=== PATIENT | male | born 1970 | race Caucasian/White ===

== ENCOUNTER 2016-04-29 10:00 | Outpatient (RCR) | payer MEDICAID | END 2016-05-04 | LOC: M OUTALCOH 10:00 | PROVIDERS: ATTEND Psychiatry & Neurology Psychiatry | DX: F10.10 Alcohol abuse, uncomplicated (principal); F12.20 Cannabis dependence, uncomplicated; F17.200 Nicotine dependence, unspecified, uncomplicated ==

== ENCOUNTER → 2016-05-05 | Outpatient (REF) | payer MEDICAID | LOC: M LABNEURO 17:03 | PROVIDERS: ATTEND Psychiatry & Neurology Neurology | DX: R79.89 Other specified abnormal findings of blood chemistry (principal) ==

== ENCOUNTER 2016-05-27 09:00 | Outpatient (RCR) | payer MEDICAID | END 2016-06-01 | LOC: M OUTALCOH 09:00 | PROVIDERS: ATTEND Psychiatry & Neurology Psychiatry | DX: Z13.9 Encounter for screening, unspecified (principal); F12.20 Cannabis dependence, uncomplicated; F10.10 Alcohol abuse, uncomplicated; F17.200 Nicotine dependence, unspecified, uncomplicated ==

== ENCOUNTER → 2016-06-22 | Outpatient (CLI) | payer OTHER ==
--- NOTE | 2016-06-22 13:51 | REP ---
CERVICAL SPINE, EIGHT VIEWS: HISTORY: Obesity. There is no acute fracture or subluxation. The C5-6 intervertebral disc is decreased in height consistent with disc degeneration. The neural foramina are patent. IMPRESSION: Degenerative change as described above. Signed by Chencho Bazan MD 06/22/2016 02:19 P
--- NOTE | 2016-06-22 13:57 | REP ---
LUMBAR SPINE, SEVEN VIEWS: HISTORY: Obesity. There is no acute fracture. The L5-S1 intervertebral disc is decreased in height consistent with disc degeneration. Osteophytes are present on T12 through L2 and L5. The facet joints are normal in appearance. There are 2 mm of retrolisthesis of L5 on S1. This is unchanged with flexion and extension. IMPRESSION: Degenerative change as described above. Signed by Chencho Bazan MD 06/22/2016 02:19 P
== END ==
LOC: M LAB 12:18
PROVIDERS: ATTEND Neurological Surgery
DX: M47.892 Other spondylosis, cervical region (principal); M47.896 Other spondylosis, lumbar region; E66.9 Obesity, unspecified

== ENCOUNTER 2016-06-24 09:00 | Outpatient (RCR) | payer MEDICAID | END 2016-07-02 | LOC: M OUTALCOH 09:00 | PROVIDERS: ATTEND Psychiatry & Neurology Psychiatry | DX: Z13.9 Encounter for screening, unspecified (principal); F12.20 Cannabis dependence, uncomplicated; F10.10 Alcohol abuse, uncomplicated; F17.200 Nicotine dependence, unspecified, uncomplicated ==

== ENCOUNTER → 2017-01-10 | Outpatient (CLI) | payer MEDICAID | LOC: M OUTALCOH 12:29 | PROVIDERS: ATTEND Psychiatry & Neurology Psychiatry | DX: F12.20 Cannabis dependence, uncomplicated (principal); F10.10 Alcohol abuse, uncomplicated ==

== ENCOUNTER → 2017-10-26 | Outpatient (CLI) | payer OTHER | LOC: M RAD 17:57 | DX: M25.512 Pain in left shoulder (principal) | CPT/HCPCS: 73221 ==

== ENCOUNTER → 2018-01-20 | Outpatient (REF) | payer OTHER ==
[2018-01-20 17:44] LABS: BASO # 0.1 10^3/uL (0.0-0.2); BASO % 1.4 % (0.0-1.0); EOS # 0.2 10^3/uL (0.0-0.50); EOS % 2.4 % (0.0-3.0); HEMATOCRIT 49.9 % (42.0-52.0); HEMOGLOBIN 16.7 g/dl (13.5-17.5); IMMATURE GRANULOCYTE % 0.4 % (0-3.0); LYMPH % 28.6 % (24.0-44.0); MEAN CORPUSCULAR HEMOGLOBIN 31.5 pg (27.0-33.0); MEAN CORPUSCULAR HGB CONC 33.5 g/dl (32.0-36.5); MONO # 0.7 10^3/uL (0.0-0.8); MONO % 9.8 % (0.0-5.0); NEUTROPHILS % 57.4 % (36.0-66.0); PLATELET COUNT, AUTOMATED 236 10^3/uL (150-450); RED BLOOD COUNT 5.31 10^6/uL (4.30-6.10); RED CELL DISTRIBUTION WIDTH 13.5 % (11.5-14.5)
[2018-01-20 18:03] LABS: ALBUMIN 3.9 GM/DL (3.2-5.2); ALBUMIN/GLOBULIN RATIO 1.22 (1.00-1.93); ALKALINE PHOSPHATASE 137 U/L (45-117); ALT/SGPT 27 U/L (12-78); ANION GAP 5 MEQ/L (8-16); AST/SGOT 23 U/L (7-37); BILIRUBIN,TOTAL 0.4 MG/DL (0.2-1.0); BLOOD UREA NITROGEN 9 MG/DL (7-18); CALCIUM LEVEL 9.1 MG/DL (8.5-10.1); CARBON DIOXIDE LEVEL 27 MEQ/L (21-32); CHLORIDE LEVEL 109 MEQ/L (98-107); CHOLESTEROL LEVEL 249 MG/DL (<200); CHOLESTEROL RISK RATIO 6.916 (<5); CREATININE FOR GFR 0.86 MG/DL (0.70-1.30); GLOMERULAR FILTRATION RATE > 60.0 (>60); GLUCOSE, FASTING 97 MG/DL (70-100); HDL CHOLESTEROL 36 MG/DL (>40); LDL CHOLESTEROL 185 MG/DL (<100); NON-HDL-C 213 MG/DL; POTASSIUM SERUM 4.5 MEQ/L (3.5-5.1); SODIUM LEVEL 141 MEQ/L (136-145); TOTAL PROTEIN 7.1 GM/DL (6.4-8.2); TRIGLYCERIDES LEVEL 138 MG/DL (<150)
== END ==
LOC: M LAB REF 16:41
DX: E78.5 Hyperlipidemia, unspecified (principal); I10 Essential (primary) hypertension; R06.02 Shortness of breath
CPT/HCPCS: 84443

== ENCOUNTER → 2018-09-14 | Outpatient (REF) | payer OTHER ==
[~2018-09-14] MED LIST: ANTIBIOTIC; CHAN1PAK13 PO; FLOM0.4C39 PO; GABA800T4 PO; INCR1INH PO; RANI150T PO; SULF1TAB72 PO
[2018-09-14 18:49] LABS: ALBUMIN 3.5 GM/DL (3.2-5.2); ALT/SGPT 20 U/L (12-78); BILIRUBIN,TOTAL 0.3 MG/DL (0.2-1.0); BLOOD UREA NITROGEN 8 MG/DL (7-18); CALCIUM LEVEL 8.4 MG/DL (8.5-10.1); CARBON DIOXIDE LEVEL 31 MEQ/L (21-32); CHLORIDE LEVEL 107 MEQ/L (98-107); CHOLESTEROL LEVEL 209 MG/DL (<200); CHOLESTEROL RISK RATIO 5.805 (<5); CREATININE FOR GFR 0.94 MG/DL (0.70-1.30); GLOMERULAR FILTRATION RATE > 60.0 (>60); GLUCOSE, FASTING 83 MG/DL (70-100); HDL CHOLESTEROL 36 MG/DL (>40); LDL CHOLESTEROL 150 MG/DL (<100); NON-HDL-C 173 MG/DL; POTASSIUM SERUM 4.8 MEQ/L (3.5-5.1); SODIUM LEVEL 141 MEQ/L (136-145); THYROID STIMULATING HORMONE 0.758 uIU/ML (0.358-3.740); TOTAL PROTEIN 6.9 GM/DL (6.4-8.2); TRIGLYCERIDES LEVEL 114 MG/DL (<150)
== END ==
LOC: M LAB REF 17:42
PROVIDERS: ATTEND Family Medicine Addiction Medicine
DX: E78.5 Hyperlipidemia, unspecified (principal)

== ENCOUNTER → 2019-07-20 | Outpatient (REF) | payer OTHER ==
[~2019-07-20] MED LIST changes: -SULF1TAB72 PO; +SULF400T14 PO
[2019-07-20 12:42] LABS: BASO # 0.1 10^3/uL (0.0-0.2); EOS # 0.1 10^3/uL (0.0-0.5); HEMATOCRIT 51.8 % (42.0-52.0); HEMOGLOBIN 16.7 g/dl (13.5-17.5); LYMPH # 1.6 10^3/uL (1.5-5.0); LYMPH % 14.7 % (24.0-44.0); MEAN CORPUSCULAR HEMOGLOBIN 31.1 pg (27.0-33.0); MEAN CORPUSCULAR HGB CONC 32.2 g/dl (32.0-36.5); MEAN CORPUSCULAR VOLUME 96.5 fl (80.0-96.0); MONO % 9.4 % (0.0-5.0); NEUTROPHILS # 7.7 10^3/uL (1.5-8.5); NEUTROPHILS % 73.2 % (36.0-66.0); PLATELET COUNT, AUTOMATED 234 10^3/uL (150-450); RED BLOOD COUNT 5.37 10^6/uL (4.30-6.10); WHITE BLOOD COUNT 10.5 10^3/uL (4.0-10.0)
[2019-07-20 13:14] LABS: ALBUMIN 3.3 GM/DL (3.2-5.2); ALT/SGPT 19 U/L (12-78); BILIRUBIN,TOTAL 0.2 MG/DL (0.2-1.0); BLOOD UREA NITROGEN 12 MG/DL (7-18); CALCIUM LEVEL 9.1 MG/DL (8.5-10.1); CARBON DIOXIDE LEVEL 29 MEQ/L (21-32); CHLORIDE LEVEL 106 MEQ/L (98-107); CHOLESTEROL LEVEL 203 MG/DL (<200); CHOLESTEROL RISK RATIO 4.229 (<5); CREATININE FOR GFR 0.93 MG/DL (0.70-1.30); FREE T4 1.03 NG/DL (0.76-1.46); GLOMERULAR FILTRATION RATE > 60.0 (>60); GLUCOSE, FASTING 94 MG/DL (70-100); HDL CHOLESTEROL 48 MG/DL (>40); LDL CHOLESTEROL 137 MG/DL (<100); NON-HDL-C 155 MG/DL; POTASSIUM SERUM 4.5 MEQ/L (3.5-5.1); RUBELLA IgG QUALITATIVE IMMUNE (IMMUNE); SODIUM LEVEL 140 MEQ/L (136-145); TOTAL 25(OH) VITAMIN D 23.7 NG/ML (30.0-100.0); TOTAL PROTEIN 6.8 GM/DL (6.4-8.2); TRIGLYCERIDES LEVEL 92 MG/DL (<150)
[2019-07-20 13:18] LABS: HEMOGLOBIN A1c 5.6 %
[2019-07-21 08:06] LABS: RUBEOLA IgG ANTIBODY >300.0 AU/mL (Immune >16.4)
== END ==
LOC: M LAB REF 12:16
PROVIDERS: ATTEND Nurse Practitioner Family
DX: R06.02 Shortness of breath (principal); F17.210 Nicotine dependence, cigarettes, uncomplicated; Z13.9 Encounter for screening, unspecified; M25.512 Pain in left shoulder; F41.9 Anxiety disorder, unspecified; F32.9 Major depressive disorder, single episode, unspecified; E78.5 Hyperlipidemia, unspecified; I10 Essential (primary) hypertension; F17.200 Nicotine dependence, unspecified, uncomplicated; J44.9 Chronic obstructive pulmonary disease, unspecified

== ENCOUNTER → 2020-09-04 | Outpatient (CLI) | payer OTHER ==
--- NOTE | 2020-09-04 09:15 | PFTRPT ---
Site: [facility], [address] [place], [address] ID: [id number] Name: MIGUEL FRITZ Visit Date: 09/04/2020 Second ID: [id number] Referring Doctor: GENIA Valle Marcus, M Reviewing Doctor: Yonatan Adkins MD Metal Fabricator: Jessica KERN RRT Age: 50 : 1970 Sex: Male Race: Height: 68.00 Inches Weight: 164.00 Lbs BSA: 1.88 Order IDs: [id number] Requested Test(s): <RESP-PFT.PFT B/A> Diagnosis: R06.00 test appear to be valid, although the ATS standard for "end of test" was not met. Pt was given four puffs of albuterol for post bronchodilator. Review Status: Not Reviewed Pre-Bronch Post-Bronch Pred Actual %Pred Actual %Chng SPIROMETRY FVC (L) 4.77 4.63 97 4.73 2 FEV1 (L) 3.72 3.56 95 3.72 4 FEV1/FVC (%) 78 77 98 79 2 FEF 25% (L/sec) 7.29 6.76 92 7.50 10 FEF 50% (L/sec) 4.75 3.65 76 4.68 28 FEF 75% (L/sec) 1.60 1.32 82 1.37 3 FEF 25-75% (L/sec) 3.37 2.95 87 3.58 21 FEF Max (L/sec) 9.45 8.44 89 8.91 5 FIVC (L) 4.01 4.38 9 FIF 50% (L/sec) 5.02 3.42 68 4.79 40 FIF Max (L/sec) 3.43 4.80 39 MVV (L/min) 148 128 86 Expiratory Time (sec) 4.95 4.66 -5 Back Extrap Vol (L) 0.18 0.15 -14 Time To FEFmax (sec) 0.094 0.094 LUNG VOLUMES SVC (L) 4.66 4.91 105 IC (L) 3.25 3.03 93 ERV (L) 1.41 1.88 133 TGV (L) 3.30 3.49 105 RV (Pleth) (L) 1.89 1.61 85 TLC (Pleth) (L) 6.55 6.52 99 RV/TLC (Pleth) (%) 29 25 85 DIFFUSION DLCOunc (ml/min/mmHg) 30.24 23.67 78 DLCOcor (ml/min/mmHg) 30.24 22.71 75 DL/VA (ml/min/mmHg/L) 4.62 3.61 78 VA (L) 6.55 6.28 95 BHT (sec) 9.79 IVC (L) 4.90 TLC (SB) (L) 6.43 AIRWAYS RESISTANCE Raw (cmH2O/L/s) 1.45 0.90 61 Gaw (L/s/cmH2O) 1.03 1.18 114 sRaw (cmH2O*s) 4.76 3.75 78 sGaw (1/cmH2O*s) 0.20 0.29 144 BLOOD GASES Hgb (gm/dL) 16.2
== END ==
LOC: M CARPUL 08:33
PROVIDERS: ATTEND Physician Assistant
DX: R06.00 Dyspnea, unspecified (principal)

== ENCOUNTER → 2020-09-26 | Outpatient (CLI) | payer OTHER ==
--- NOTE | 2020-09-30 13:46 | SLEEPHOME ---
DATE: 09/26/2020 ORDERED BY: Heri Valle Diagnostic home sleep testing was performed due to concern for the obstructive sleep apnea syndrome in this patient with a prior history of same. For testing, a nocturnal T3 respiratory monitoring device was used. Continuous record was made of pulse, oxygen saturation, air flow, chest and abdominal strain, and body position. There was 9 hours and 59 minutes of data reviewed. There was 7 hours and 35 minutes marked as time in bed. During the interval marked time in bed, there were 78 respiratory events identified of 10 seconds in duration or greater for a respiratory event index of 10.3. The events were primarily obstructive. Seventeen mixed and central apneas were seen. Baseline pulse rate 80. Pulse ranted 36-181. Baseline saturation 92%. Saturations fell to 83%, and testing was performed in both the supine and nonsupine positions. IMPRESSION: Abnormal home sleep testing with repetitive respiratory events and oxygen desaturations to 83% with a respiratory event index of 10.3 is consistent with the obstructive sleep apnea syndrome. RECOMMENDATION: The patient should be encouraged to undergo formal sleep evaluation.
== END ==
LOC: M SLEEP HO 10:32
PROVIDERS: ATTEND Physician Assistant
DX: G47.33 Obstructive sleep apnea (adult) (pediatric) (principal)

== ENCOUNTER → 2020-10-09 | Outpatient (CLI) | payer OTHER ==
[~2020-10-09] MED LIST changes: +ISOVUE-370 76% 100ML VIAL As Ordered ONE
--- NOTE | 2020-10-09 16:41 | REP ---
INDICATION: ABN PFT, DYSPNEA COMPARISON: None. TECHNIQUE: CT angiography of the chest attention pulmonary arteries after the intravenous administration of 75 cc Isovue 370. FINDINGS: There is excellent visualization of the pulmonary arterial vasculature. No focal filling defects are present that would be considered consistent with acute pulmonary emboli. The thoracic aorta is normal. There are no pleural or pericardial effusions. The imaged upper abdomen and imaged osseous structures are within normal limits. Evaluation of the lung jorge shows incidental calcified right hilar granulomatous changes within incidental partially calcified lymph node in the subcarinal region. There is an incidental calcified granuloma in the right upper lobe. Mild bilateral dependent subsegmental atelectatic changes are seen in the lung bases. Early biapical emphysematous changes are identified with small parenchymal bulla and pleural blebs right greater than left. IMPRESSION: 1. There is no evidence of a pulmonary embolus. 2. Early emphysematous changes as described above. Follow-up should be based on clinical assessment. Consider pulmonary consultation. 3. Incidental benign calcifications as described above. <Electronically signed by Clayton Chávez > 10/09/20 [id number]
== END ==
LOC: M RAD 15:38
PROVIDERS: ATTEND Physician Assistant
DX: R94.2 Abnormal results of pulmonary function studies (principal); R06.00 Dyspnea, unspecified; J43.9 Emphysema, unspecified; J84.10 Pulmonary fibrosis, unspecified
CPT/HCPCS: 71275; Q9967